=== PATIENT | female | born 1965 | race Caucasian/White ===

== ENCOUNTER → 2016-09-05 | Outpatient (CLI) | payer MEDICARE, OTHER ==
--- NOTE | 2016-09-05 15:53 | REPMRS ---
Patient History The patient states she had a clinical breast exam in 09/06 Patient is postmenopausal. Family history of colorectal cancer in mother at age 60. Benign excisional biopsy of the right breast, 1990. Taking estrogen for 1 year. Taking progesterone for 1 year. Digital Woman Screen Mammo: September 05, 2016 - Exam #: [id number] Bilateral CC and MLO view(s) were taken. Technologist: Gabriela Malhotra, Technologist Prior study comparison: September 06, 2015, digital woman screen mammo performed at [facility]. July 18, 2010, bilateral screening mammogram performed at [facility] to [facility]. FINDINGS: The breast tissue is heterogeneously dense. This may lower the sensitivity of mammography. There has been no change in the appearance of the mammogram from the prior studies. There is a moderate amount of residual fibroglandular tissue which is fairly symmetric. There is no interval development of dominant mass, areas of architectural distortion, or clustered microcalcification typical of malignancy. ASSESSMENT: BI-RADS/ACR category 1 mammogram. Negative. Recommendation Routine screening mammogram in 1 year (for women over age 40). This mammogram was interpreted with the aid of an FDA-approved computer-aided dectection system. Electronically Signed By: Devin Kidd MD 09/05/16 [id number]
== END ==
LOC: M WHC 14:37
PROVIDERS: ATTEND Nurse Practitioner Family
DX: Z12.31 Encounter for screening mammogram for malignant neoplasm of breast (principal); Z78.0 Asymptomatic menopausal state; Z92.89 Personal history of other medical treatment
CPT/HCPCS: G0202; G0463

== ENCOUNTER → 2019-02-05 | Outpatient (REF) | payer MEDICARE, OTHER | LOC: M LAB REF 10:52 | PROVIDERS: ATTEND Physician Assistant | DX: L02.211 Cutaneous abscess of abdominal wall (principal) ==

== ENCOUNTER → 2019-02-15 | Outpatient (CLI) | payer MEDICARE, OTHER ==
--- NOTE | 2019-02-15 16:50 | REP ---
Clinical: Pelvic pain . Technique: Transabdominal pelvic ultrasound followed by transvaginal examination for better evaluation of the endometrium and adnexa with color Doppler evaluation of the ovaries. Findings: Bladder is unremarkable and measures 11.4 x 8.8 x 9.4 cm . Heterogeneous anteverted uterus measures 6.2 x 2.6 x 3.4 cm and includes right intramural fibroid measuring 1.6 x 1.5 x 1.4 cm and the left subserosal fibroid measuring 1.0 x 0.8 x 0.7 cm. The endometrial complex measures 2.6 mm thickness. No discrete uterine or endometrial abnormalities are appreciated. Bilateral ovaries are normal in appearance and vascularity without evidence for torsion. Right ovary measures 1.9 x 1.3 x 1.2 cm ; R I = 0.53 . Left ovary measures 1.9 x 1.0 x 1.6 cm ; R I = 0.53 . No pelvic fluid or adnexal mass lesion . Impression: 1. Heterogeneous uterus with two suspected fibroids. 2. Normal bilateral ovaries. No pelvic fluid or adnexal mass lesion Electronically Signed by Barney Belle MD 02/15/2019 04:41 P
== END ==
LOC: M RAD 15:22
PROVIDERS: ATTEND Nurse Practitioner Family
DX: R10.2 Pelvic and perineal pain (principal); N85.4 Malposition of uterus

== ENCOUNTER → 2019-04-05 | Outpatient (REF) | payer MEDICARE, OTHER ==
[2019-04-06 11:09] LABS: HEPATITIS C VIRUS ABY INDEX < 0.0 INDEX (<0.8); HIV 1&2 SCREEN CENTAUR NEGATIVE (NEGATIVE)
== END ==
LOC: M PLALAB 16:48
PROVIDERS: ATTEND Nurse Practitioner Family
DX: Z11.59 Encounter for screening for other viral diseases (principal); Z11.4 Encounter for screening for human immunodeficiency virus [HIV]; Z12.4 Encounter for screening for malignant neoplasm of cervix

== ENCOUNTER → 2019-04-05 | Outpatient (CLI) | payer MEDICARE, OTHER ==
--- NOTE | 2019-04-05 16:57 | REPMRS ---
Patient History The patient states she had a clinical breast exam in 2019. Family history of colorectal cancer at age 60 in mother. Benign excisional biopsy of the right breast, 1990. Taking estrogen for 1 year. Taking progesterone for 1 year. Digital Woman Screen Mammo: April 05, 2019 - Exam #: [id number] Bilateral CC and MLO view(s) were taken. Technologist: Patricia Manley, Technologist Prior study comparison: September 05, 2016, digital woman screen mammo performed at [facility]. September 06, 2015, digital woman screen mammo performed at [facility]. July 18, 2010, bilateral screening mammogram performed at [facility]. FINDINGS: The breast tissue is heterogeneously dense. This may lower the sensitivity of mammography. There is a moderate amount of heterogeneously dense fibroglandular tissue which is fairly symmetric. There is no interval development of dominant mass, architectural distortion, or grouped microcalcification typical of malignancy. There has been no change in the appearance of the mammogram from the prior studies. 3-D tomosynthesis shows no additional findings. Assessment: BI-RADS/ACR category 1 mammogram. Negative Mammogram. Recommendation Routine screening mammogram of both breasts in 1 year (for women over age 40). This patient's Lifetime Breast Cancer RIsk is estimated at 7.6 %. This mammogram was interpreted with the aid of an FDA-approved computer-aided dectection system. Electronically Signed By: Clifton Galvan MD 04/05/19 0546
== END ==
LOC: M WHC 14:57
PROVIDERS: ATTEND Nurse Practitioner Family
DX: Z12.31 Encounter for screening mammogram for malignant neoplasm of breast (principal); Z80.0 Family history of malignant neoplasm of digestive organs; Z86.018 Personal history of other benign neoplasm; Z92.23 Personal history of estrogen therapy; Z92.29 Personal history of other drug therapy; Z11.59 Encounter for screening for other viral diseases; Z11.4 Encounter for screening for human immunodeficiency virus [HIV]; Z12.4 Encounter for screening for malignant neoplasm of cervix; Z12.12 Encounter for screening for malignant neoplasm of rectum
CPT/HCPCS: 36415; 77063; 77067; 82270; 86803; 87389; G0101; G0123

== ENCOUNTER → 2019-08-04 | Outpatient (CLI) | payer MEDICARE, OTHER ==
[2019-08-04 17:15] LABS: HEMATOCRIT 41.3 % (36.0-47.0); HEMOGLOBIN 13.6 g/dl (12.0-15.5); MEAN CORPUSCULAR HEMOGLOBIN 30.6 pg (27.0-33.0); MEAN CORPUSCULAR HGB CONC 32.9 g/dl (32.0-36.5); PLATELET COUNT, AUTOMATED 262 10^3/uL (150-450); RED BLOOD COUNT 4.44 10^6/uL (4.00-5.40); WHITE BLOOD COUNT 7.1 10^3/uL (4.0-10.0)
[2019-08-04 17:51] LABS: ALBUMIN 3.6 GM/DL (3.2-5.2); ALT/SGPT 34 U/L (12-78); BILIRUBIN,TOTAL 0.2 MG/DL (0.2-1.0); BLOOD UREA NITROGEN 15 MG/DL (7-18); CALCIUM LEVEL 8.9 MG/DL (8.5-10.1); CARBON DIOXIDE LEVEL 28 MEQ/L (21-32); CHLORIDE LEVEL 106 MEQ/L (98-107); CREATININE FOR GFR 0.72 MG/DL (0.55-1.30); FREE T4 0.99 NG/DL (0.76-1.46); GLOMERULAR FILTRATION RATE > 60.0 (>51); GLUCOSE, FASTING 111 MG/DL (70-100); POTASSIUM SERUM 4.7 MEQ/L (3.5-5.1); SODIUM LEVEL 140 MEQ/L (136-145); TOTAL PROTEIN 6.7 GM/DL (6.4-8.2)
== END ==
LOC: M WUC 11:25
PROVIDERS: ATTEND Physician Assistant Medical
DX: R19.7 Diarrhea, unspecified (principal)

== ENCOUNTER 2020-04-23 13:00 | Emergency (ER) | payer MEDICARE, OTHER ==
[~2020-04-23] VITALS: Ht 157.5 cm; Wt 62.9 kg
[2020-04-23] MEDS ORDERED: TIZA4TAB4 (13:11)
[2020-04-23] MEDS ORDERED: ACET-897 PO (13:11)
[2020-04-23] MEDS ORDERED: PREG150C (13:11)
[2020-04-23] MEDS ORDERED: NS 1,000 ML IV ONE (15:30)
[2020-04-23] MEDS ORDERED: ACETAMINOPHEN 325 MG TAB PO ONE (15:30)
--- NOTE | 2020-04-23 15:58 | REP ---
INDICATION: right flank pain COMPARISON: Comparison CT study March 22, 2015.. TECHNIQUE: Helical scanning is acquired in 4 mm axial images were reformatted. Coronal and sagittal MPR images were generated and reviewed. FINDINGS: Preliminary digital quiller runner radiograph shows an unremarkable bowel gas pattern. On axial CT images the lung bases are clear. The liver appears enlarged with a craniocaudal span in the midclavicular line of 18.1 cm. No focal hepatic lesion is seen. Spleen is normal in size homogeneous in texture. No adrenal lesion is observed. No abnormality is noted in the pancreas or the gallbladder. No retroperitoneal mass is seen. The kidneys appear morphologically intact. No intrarenal calculus or hydronephrosis is appreciated. Normal caliber aorta. A normal appendix is seen in the right lower quadrant. No uterine abnormality or ovarian abnormality is seen. Urinary bladder is unremarkable. No abdominal wall defect is seen. Bone window settings show mild degenerative spondylosis changes. No acute bony abnormality is seen. IMPRESSION: No urinary tract calculus or hydronephrosis seen. Normal appendix. Mild hepatomegaly. This appears to be unchanged from the 2015 prior study. <Electronically signed by Clifton Galvan > 04/23/20 [id number]
[2020-04-23 16:44] LABS: BASO # 0.1 10^3/uL (0.0-0.2); BASO % 0.8 % (0.0-1.0); EOS # 0.2 10^3/uL (0.0-0.5); HEMATOCRIT 43.7 % (36.0-47.0); HEMOGLOBIN 14.7 g/dl (12.0-15.5); LYMPH # 2.6 10^3/uL (1.5-5.0); MEAN CORPUSCULAR HEMOGLOBIN 30.6 pg (27.0-33.0); MEAN CORPUSCULAR HGB CONC 33.6 g/dl (32.0-36.5); MEAN CORPUSCULAR VOLUME 90.9 fl (80.0-96.0); MONO # 0.3 10^3/uL (0.0-0.8); MONO % 4.4 % (0.0-5.0); NEUTROPHILS # 4.4 10^3/uL (1.5-8.5); NEUTROPHILS % 58.5 % (36.0-66.0); PLATELET COUNT, AUTOMATED 257 10^3/uL (150-450); RED BLOOD COUNT 4.81 10^6/uL (4.00-5.40); WHITE BLOOD COUNT 7.5 10^3/uL (4.0-10.0)
[2020-04-23] MEDS ORDERED: LIDOCAINE 5% (LIDODERM) PATCH TD ONE (17:00)
[2020-04-23 17:03] LABS: ALBUMIN 3.7 GM/DL (3.2-5.2); ALT/SGPT 33 U/L (12-78); BILIRUBIN,DIRECT < 0.1 MG/DL (0.0-0.2); BILIRUBIN,TOTAL 0.4 MG/DL (0.2-1.0); LIPASE 208 U/L (73-393)
[2020-04-23] MEDS ORDERED: CYCL5TAB PO (17:08)
[2020-04-23 17:46] VITALS: BP 113/63
[2020-04-23] MEDS ORDERED: **NOTE PATIENT COMMENT** MISC XX SCH (21:00)
== END 2020-04-23 17:48 | disposition home or self-care (01) ==
LOC: M ED 13:00
DX: M54.5 Low back pain (principal); N39.0 Urinary tract infection, site not specified; Z78.0 Asymptomatic menopausal state; D25.9 Leiomyoma of uterus, unspecified; Z79.899 Other long term (current) drug therapy; Z88.1 Allergy status to other antibiotic agents; Z88.8 Allergy status to other drugs, medicaments and biological substances; F17.210 Nicotine dependence, cigarettes, uncomplicated

== ENCOUNTER → 2020-04-23 | Outpatient (REF) | payer MEDICARE, OTHER ==
[~2020-04-23] MED LIST: ACET-897 PO; CYCL5TAB PO; PREG150C; TIZA4TAB4
[2020-04-23 13:57] LABS: APPEARANCE, URINE CLEAR (CLEAR); BACTERIA, URINE AUTO NEGATIVE (NEGATIVE); BILIRUBIN, URINE AUTO NEGATIVE (NEGATIVE); BLOOD, URINE BLOOD NEGATIVE (NEGATIVE); COLOR, URINE STRAW (YELLOW); GLUCOSE, URINE (UA) AUTO NEGATIVE (NEGATIVE); KETONE, URINE AUTO NEGATIVE (NEGATIVE); LEUKOCYTE ESTERASE, URINE AUTO NEGATIVE (NEGATIVE); MUCUS, URINE SMALL (NEGATIVE); NITRITE, URINE AUTO NEGATIVE (NEGATIVE); PROTEIN, URINE AUTO NEGATIVE (NEGATIVE); RBC, URINE AUTO 1 /HPF (0-3); SPECIFIC GRAVITY URINE AUTO 1.004 (1.002-1.035); SQUAMOUS EPITHELIAL CELL UR AU 0 /HPF (0-6); UROBILINOGEN, URINE AUTO 0.2 mg/dL (0.0-2.0); WBC, URINE AUTO 0 /HPF (0-3)
== END ==
LOC: M LAB REF 12:36
PROVIDERS: ATTEND Physician Assistant Medical
DX: N39.0 Urinary tract infection, site not specified (principal)

== ENCOUNTER → 2021-06-04 | Outpatient (CLI) | payer MEDICARE, OTHER ==
[~2021-06-04] MED LIST changes: +TIZA10TA; -TIZA4TAB4
== END ==
LOC: M SOG 15:08
PROVIDERS: ATTEND Physician Assistant
DX: M79.89 Other specified soft tissue disorders (principal)

== ENCOUNTER → 2021-06-13 | Outpatient (CLI) | payer MEDICARE, OTHER ==
[~2021-06-13] MED LIST changes: +PROHANCE 279.3MG/ML 15ML VIAL As Ordered ONE
== END ==
LOC: M RAD 13:51
PROVIDERS: ATTEND Internal Medicine
DX: L03.011 Cellulitis of right finger (principal)
CPT/HCPCS: 73220; A9576

== ENCOUNTER → 2022-06-18 | Outpatient (CLI) | payer MEDICARE, OTHER ==
[~2022-06-18] MED LIST changes: -PROHANCE 279.3MG/ML 15ML VIAL As Ordered ONE
== END ==
LOC: M WHC 14:25
PROVIDERS: ATTEND Nurse Practitioner Family
DX: Z12.31 Encounter for screening mammogram for malignant neoplasm of breast (principal)

== ENCOUNTER 2022-07-08 23:57 | Emergency (ER) | payer MEDICARE, OTHER ==
[2022-07-09 00:52] LABS: VENOUS BASE EXCESS 0.4 (-2.0-2.0); VENOUS HCO3 25.3 MEQ/L (23.0-27.0); VENOUS O2 SATURATION 91.3 % (60.0-80.0); VENOUS PARTIAL PRESSURE CO2 41.8 mmHg (38.0-50.0); VENOUS PARTIAL PRESSURE O2 56.6 mmHg (30.0-50.0); VENOUS STANDARD HCO3 24.7 MEQ/L; VENOUS TOTAL CO2 26.6 MEQ/L (24.0-28.0)
[2022-07-09 02:45] VITALS: BP 111/59
== END 2022-07-09 02:55 | disposition home or self-care (01) ==
LOC: M ED 23:57
DX: T58.8X4A Toxic effect of carbon monoxide from other source, undetermined, initial encounter (principal); J70.5 Respiratory conditions due to smoke inhalation; X00.0XXA Exposure to flames in uncontrolled fire in building or structure, initial encounter; Y92.098 Other place in other non-institutional residence as the place of occurrence of the external cause; J44.9 Chronic obstructive pulmonary disease, unspecified; F17.290 Nicotine dependence, other tobacco product, uncomplicated; Z88.8 Allergy status to other drugs, medicaments and biological substances; Z88.1 Allergy status to other antibiotic agents; Z79.899 Other long term (current) drug therapy

== ENCOUNTER → 2022-08-28 | Outpatient (REF) | payer MEDICARE, OTHER | LOC: M SFHCWAGY 17:42 | PROVIDERS: ATTEND Nurse Practitioner Family | DX: Z12.4 Encounter for screening for malignant neoplasm of cervix (principal) | CPT/HCPCS: 87624; G0123 ==

== ENCOUNTER → 2022-11-22 | Outpatient (CLI) | payer MEDICARE, OTHER | LOC: M RAD 12:44 | PROVIDERS: ATTEND Pain Medicine Interventional Pain Medicine | DX: M25.512 Pain in left shoulder (principal) ==

== ENCOUNTER 2022-12-29 09:11 | Day surgery (SDC) | payer MEDICARE, OTHER ==
[~2022-12-29] VITALS: Ht 157.5 cm; Wt 56.1 kg
[~2022-12-29 09:11] MED LIST changes: +DULO1CAP5 PO; +NS 1,000 ML IV ONE; -PREG150C; +PREG150C2 PO
[2022-12-29] MEDS ORDERED: LIDOCAINE 2% 100MG/5ML SDV (FOR ANES.) As Ordered ONE (09:24)
[2022-12-29] MEDS ORDERED: propofoL 200 MG/20 ML VIAL As Ordered ONE (09:24)
[2022-12-29] MEDS ORDERED: PHENYLephrine 500MCG 5ML (100MCG/ML) SYRINGE As Ordered ONE (10:36)
[2022-12-29 10:53] VITALS: TEMP 97.1
[2022-12-29 11:16] VITALS: BP 97/54; O2SAT 95
== END 2022-12-29 11:24 | disposition home or self-care (01) ==
LOC: M OPP 09:11
PROVIDERS: ATTEND Internal Medicine Gastroenterology
DX: Z12.11 Encounter for screening for malignant neoplasm of colon (principal); Z80.0 Family history of malignant neoplasm of digestive organs; K64.0 First degree hemorrhoids; F17.200 Nicotine dependence, unspecified, uncomplicated; Z79.1 Long term (current) use of non-steroidal anti-inflammatories (NSAID); Z79.891 Long term (current) use of opiate analgesic; Z79.899 Other long term (current) drug therapy; Z88.1 Allergy status to other antibiotic agents; Z88.5 Allergy status to narcotic agent; Z88.6 Allergy status to analgesic agent; Z88.8 Allergy status to other drugs, medicaments and biological substances
CPT/HCPCS: G0105; J2371

== ENCOUNTER → 2023-09-25 | Outpatient (CLI) | payer OTHER, MEDICARE ==
[~2023-09-25] MED LIST changes: -NS 1,000 ML IV ONE
== END ==
LOC: M RAD 14:26
PROVIDERS: ATTEND Nurse Practitioner Family
DX: M54.16 Radiculopathy, lumbar region (principal); M54.59 Other low back pain

== ENCOUNTER → 2023-12-18 | Outpatient (CLI) | payer MEDICARE | LOC: M PLARAD 14:11 | PROVIDERS: ATTEND Pain Medicine Interventional Pain Medicine | DX: M54.12 Radiculopathy, cervical region (principal); M50.30 Other cervical disc degeneration, unspecified cervical region ==

== ENCOUNTER → 2024-03-03 | Outpatient (CLI) | payer MEDICARE ==
[~2024-03-03] MED LIST changes: -CYCL5TAB PO; +CYCL5TAB4 PO
== END ==
LOC: M PLARAD 09:50
PROVIDERS: ATTEND Pain Medicine Interventional Pain Medicine
DX: M19.011 Primary osteoarthritis, right shoulder (principal)

== ENCOUNTER → 2024-11-28 | Outpatient (CLI) | payer MEDICARE | LOC: M WUC 15:40 | PROVIDERS: ATTEND Internal Medicine | DX: M25.562 Pain in left knee (principal) ==

== ENCOUNTER → 2024-12-15 | Outpatient (CLI) | payer MEDICARE | LOC: M WUC 09:52 | PROVIDERS: ATTEND Internal Medicine | DX: M25.551 Pain in right hip (principal) ==

== ENCOUNTER → 2025-02-21 | Outpatient (CLI) | payer MEDICARE | LOC: M WHC 14:35 | PROVIDERS: ATTEND Physician Assistant | DX: Z12.31 Encounter for screening mammogram for malignant neoplasm of breast (principal); N64.4 Mastodynia | CPT/HCPCS: 77066; G0279 ==

== ENCOUNTER → 2025-02-21 | Outpatient (REF) | payer MEDICARE, OTHER ==
[2025-02-23 18:27] LABS: HPV APTIMA Not Detected (Not Detected)
== END ==
LOC: M SFHCWAGY 17:59
PROVIDERS: ATTEND Physician Assistant
DX: Z01.419 Encounter for gynecological examination (general) (routine) without abnormal findings (principal)
CPT/HCPCS: 87624; G0123